=== PATIENT | female | born 1990 | race Caucasian/White ===

== ENCOUNTER 2019-09-21 18:41 | Inpatient (IN) | payer BC ==
--- OUTSIDE RECORDS SUMMARY | ~2019-09-21 | XMS | Encounter Summary ---
Demographics + + + | Address | [address] | | | [place] [address] | + + + | Home Phone | | + + + | Preferred Language | Unknown | + + + | Marital Status | | + + + | Hoahaoism Affiliation | 1013 | + + + | Race | Unknown | + + + | Ethnic Group | Unknown | + + + Author + + + | Author | [facility] | | | and [place] | + + + | Organization | [facility] | | | and [place] | + + + | Address | Unknown | + + + | Phone | Unavailable | + + + Care Team Providers + +------+ + | Care Water Plumber Name | Role | Phone | + +------+ + PCP | Unavailable | + +------+ + Encounter Details +--------+ + + + + | Date | Type | Department | Care Team | Description | +--------+ + + + + | 02/26/ | Orders Only | [facility] | Conversion | | | 2011 | | CONVERSION | Transaction, | | | | | INTERFACES [address] | Provider Unknown | | | | | [address] [place], [place] | | | | | | [address] | (Fax) | | | | | [phone] | | | +--------+ + + + + Social History + +-------+ +--------+------+ | Tobacco Use | Types | Packs/Day | Years | Date | | | | | Used | | + +-------+ +--------+------+ | Never Assessed | | | | | + +-------+ +--------+------+ + + + | Sex Assigned at | Date Recorded | | | | + + + | Not on file | | + + + documented as of this encounter Plan of Treatment Not on filedocumented as of this encounter Procedures + +--------+ + + + | Procedure Name | Priori | Date/Time | Associated Diagnosis | Comments | | | ty | | | | + +--------+ + + + | FL C ARM < 1 HOUR | Routin | 02/26/2011 | | Results for this | | | e | 3:58 AM | | procedure are in the | | | | PST | | results section. | + +--------+ + + + documented in this encounter Results FL C-Arm < 1 Hour (02/26/2011 3:58 AM PST) + + | Specimen | + + | | + + + + + | Narrative | Performed At | + + + | This is a non-reportable procedure without a radiologist report and | | | is used for image storage only | | + + + + + | Procedure Note | + + | Sawyer Cruz - 10/15/2018 9:33 AM PDT This is a non-reportable procedure | | without a radiologist report and isused for image storage only | + + documented in this encounter Visit Diagnoses Not on filedocumented in this encounter"
--- OUTSIDE RECORDS SUMMARY | ~2019-09-21 | XMS | Encounter Summary ---
Demographics + + + | Address | [address] | | | [place] [address] | + + + | Home Phone | | + + + | Preferred Language | Unknown | + + + | Marital Status | | + + + | Yazidism Affiliation | 1013 | + + + | Race | Unknown | + + + | Ethnic Group | Unknown | + + + Author + + + | Author | [facility] | | | and [place] | + + + | Organization | [facility] | | | and [place] | + + + | Address | Unknown | + + + | Phone | Unavailable | + + + Care Team Providers + +------+ + | Care Insurance Underwriter Name | Role | Phone | + +------+ + PCP | Unavailable | + +------+ + Encounter Details +--------+ + + + + | Date | Type | Department | Care Team | Description | +--------+ + + + + | 10/29/ | Orders Only | [facility] | Neena Jansen, | | | 2010 | | CONVERSION | MD [address] | | | | | [address]FAC[address] | [place] | | | | | [address] [place], [place] | [address] | | | | | [address] | | | | | | [phone] | | | +--------+ + + + [...] | + +--------+ + + + | CT RENAL STONE WO | Routin | 10/29/2010 | | Results for this | | CONTRAST | e | 10:05 PM | | procedure are in the | | | | PDT | | results section. | + +--------+ + + + documented in this encounter Results CT Renal Stone Wo Contrast (10/29/2010 10:05 PM PDT) + + | Specimen | + + | | + + + + + | Narrative | Performed At | + + + | [facility] [address] Ph: | | | Patient Name: EZIO SIDDIQI Date of : | | | 1990 Medical Record: [id number] Account: [id number] | | | Exam Date/Time: 10/29/2010 21:37 Ordering | | | Physician: NEENA JANSEN Order Detail: [id number] Exam Description: | | | CT URINARY TRACT (ABDOMEN/PELVIS) | | | CT | | | ABDOMEN WITHOUT CONTRAST AND CT PELVIS WITHOUT CONTRAST 10/29/2010 | | | HISTORY: Right low abdomen pain. TECHNIQUE: Scans obtained | | | through the abdomen and pelvis without IV or oral contrast with | | | coronal reformations. FINDINGS: The lung bases are unremarkable. | | | In the abdomen, the unenhanced liver, pancreas, spleen, adrenals, | | | and kidneys are unremarkable. No ureteral stones or obstruction on | | | either side. No calcified gallstones or dilated ducts. No aortic | | | enlargement. No adenopathy. Bowel is unremarkable in the abdomen | | | and pelvis, noting a normal appendix. No free air in the abdomen and | | | pelvis. In the pelvis, there is a small amount of free fluid. | | | Reproductive organs and full bladder are unremarkable. | | | IMPRESSION: Small amount of free fluid noted in the pelvis. Otherwise | | | unremarkable noncontrast CT of the abdomen and pelvis. Read by | | | Mo Galdamez MD on 10/29/10 22:28. | | + + + + + | Procedure Note | + + | Anthony, Rad Conversion - 10/16/2018 10:30 AM PDT | | [facility] | | [facility] [place] [address] | | | | | | Patient Name: EZIO SIDDIQI | | Date of : 1990 | | Medical Record: [id number] | | Account: [id number] | | | | | | Exam Date/Time: 10/29/2010 21:37 | | Ordering Physician: NEENA JANSEN | | Order Detail: [id number] | | Exam Description: CT URINARY TRACT (ABDOMEN/PELVIS) | | | | CT ABDOMEN WITHOUT CONTRAST AND CT PELVIS WITHOUT CONTRAST 10/29/2010 | | | | HISTORY: Right low abdomen pain. | | | | TECHNIQUE: Scans obtained through the abdomen and pelvis without IV or | | oral contrast with coronal reformations. | | | | FINDINGS: The lung bases are unremarkable. | | | | In the abdomen, the unenhanced liver, pancreas, spleen, adrenals, and | | kidneys are unremarkable. No ureteral stones or obstruction on either side. | | No calcified gallstones or dilated ducts. No aortic enlargement. No | | adenopathy. | | | | Bowel is unremarkable in the abdomen and pelvis, noting a normal appendix. | | No free air in the abdomen and pelvis. | | | | In the pelvis, there is a small amount of free fluid. Reproductive organs | | and full bladder are unremarkable. | | | | IMPRESSION: Small amount of free fluid noted in the pelvis. Otherwise | | unremarkable noncontrast CT of the abdomen and pelvis. | | | | Read by Mo Galdamez MD on 10/29/10 22:28. | | | | | | | | | + + documented in this encounter Visit Diagnoses Not on filedocumented in this encounter"
--- OUTSIDE RECORDS SUMMARY | ~2019-09-21 | XMS | Encounter Summary ---
Demographics + + + | Address | [address] | | | [place] [address] | + + + | Home Phone | | + + + | Preferred Language | Unknown | + + + | Marital Status | | + + + | Restorationism Affiliation | 1013 | + + + | Race | Unknown | + + + | Ethnic Group | Unknown | + + + Author + + + | Author | [facility] | | | and [place] | + + + | Organization | [facility] | | | and [place] | + + + | Address | Unknown | + + + | Phone | Unavailable | + + + Care Team Providers + +------+ + | Care Medical Delivery Driver Name | Role | Phone | + +------+ + PCP | Unavailable | + +------+ + Encounter Details +--------+ + + + + | Date | Type | Department | Care Team | Description | +--------+ + + + + | 10/29/ | Orders Only | [facility] | Adeel Jansen S, | | | 2010 | | CONVERSION [address]P [address] | MD [address] | | | | | [address] | [place], [place] | | | | | [place], [place] | [address] | | | | | [address] | | | | | | [phone] | | | +--------+ + + + [...] | + +--------+ + + + | CULTURE, URINE | STAT | 10/29/2010 | | Results for this | | | | 10:26 PM | | procedure are in the | | | | PDT | | results section. | + +--------+ + + + documented in this encounter Results Culture, Urine (10/29/2010 10:26 PM PDT) + + | Specimen | + + | | + + + + + | Narrative | Performed At | + + + | Specimen Description CLEAN CATCH URINE CULTURE | EXTERNAL LAB | | 10,000 TO 50,000 CFU/ML | | | MIXED GRAM POSITIVE LADARIUS | | | NO SUSCEPTIBILITY TO FOLLOW | | | MULTIPLE ORGANISM TYPES PRESENT, SUGGESTIVE OF | | | CONTAMINATION OR COLONIZATION. SUGGEST RECOLLECTION FOR CULTURE. | | | Testing performed at | | | L, [address] [place] [address] REPORT STATUS | | | 10/31/2010 FINAL | | + + + + +---------+ + + | Performing | Address | City/State/Zipcode | Phone Number | | Organization | | | | + +---------+ + + | EXTERNAL LAB | | | | + +---------+ + + documented in this encounter Visit Diagnoses Not on filedocumented in this encounter"
--- OUTSIDE RECORDS SUMMARY | ~2019-09-21 | XMS | Clinical Summary ---
Demographics + + + | Address | [address] | | | [place] [address] | + + + | Home Phone | | + + + | Preferred Language | Unknown | + + + | Marital Status | | + + + | Gnosticism Affiliation | 1013 | + + + | Race | Unknown | + + + | Ethnic Group | Unknown | + + + Author + + + | Author | [facility] | | | and [place] | + + + | Organization | [facility] | | | and [place] | + + + | Address | Unknown | + + + | Phone | Unavailable | + + + Care Team Providers + +------+ + | Care Commodities Broker Name | Role | Phone | + +------+ + PCP | Unavailable | + +------+ + Allergies Not on File Medications Not on file Active Problems Not on file Immunizations + + + + | Name | Administration Dates | Next Due | + + + + | TDAP, (ADOL/ADULT) | 05/03/2014 | | + + + + Family History + + +------+ + | Medical History | Relation | Name | Comments | + + +------+ + | Asthma | Sister | | | + + +------+ + + +------+--------+ + | Relation | Name | Status | Comments | + +------+--------+ + | Father | | Alive | | + +------+--------+ + | Mother | | Alive | | + +------+--------+ + | Sister | | | | + +------+--------+ + Social History + +-------+ +--------+------+ | Tobacco Use | Types | Packs/Day | Years | Date | | | | | Used | | + +-------+ +--------+------+ | Never Smoker | | | | | + +-------+ +--------+------+ + + + | Sex Assigned at | Date Recorded | | | | + + + | Not on file | | + + + Last Filed Vital Signs + + + + + | Vital Sign | Reading | Time Taken | Comments | + + + + + | Blood Pressure | 90/62 | 11/07/2015 10:30 AM | | | | | PDT | | + + + + + | Pulse | 78 | 11/07/2015 10:30 AM | | | | | PDT | | + + + + + | Temperature | 36.4 C (97.5 F) | 10/24/2015 1:12 PM | | | | | PDT | | + + + + + | Respiratory Rate | 16 | 10/24/2015 1:12 PM | | | | | PDT | | + + + + + | Oxygen Saturation | - | - | | + + + + + | Inhaled Oxygen | - | - | | | Concentration | | | | + + + + + | Weight | 51.7 kg (114 lb) | 11/07/2015 10:30 AM | | | | | PDT | | + + + + + | Height | 160 cm (5' 3") | 11/07/2015 10:30 AM | | | | | PDT | | + + + + + | Body Mass Index | 20.19 | 11/07/2015 10:30 AM | | | | | PDT | | + + + + + Plan of Treatment + + + + + | Health Maintenance | Due Date | Last | Comments | | | | Done | | + + + + + | Cervical Cancer | | | | | Screening (Pap) | 2 | | | + + + + + | Vaccine: Influenza | | | | | (#1) | 0 | | | + + + + + | Vaccine: | | 05/04/19 | | | Dtap/Tdap/Td (2 - | 5 | 15 | | | Td) | | | | + + + + + Results Not on filefrom Last 3 Months
--- OUTSIDE RECORDS SUMMARY | ~2019-09-21 | XMS | Encounter Summary ---
Demographics + + + | Address | [address] | | | [place] [address] | + + + | Home Phone | | + + + | Preferred Language | Unknown | + + + | Marital Status | | + + + | Yazdanism Affiliation | 1013 | + + + | Race | Unknown | + + + | Ethnic Group | Unknown | + + + Author + + + | Author | [facility] | | | and [place] | + + + | Organization | [facility] | | | and [place] | + + + | Address | Unknown | + + + | Phone | Unavailable | + + + Care Team Providers + +------+ + | Care Customer Service Sales Associate Name | Role | Phone | + +------+ + PCP | Unavailable | + +------+ + Encounter Details +--------+ + + + + | Date | Type | Department | Care Team | Description | +--------+ + + + + | 10/23/ | Orders Only | [facility] | Radha Bob | | | 2016 | | [address] | [place] [address] | | | | | [place], [place] | [place] | | | | | [address] | [place] [address] | | | | | [phone] | [phone] | | | | | | | | +--------+ + + + [...] | + +--------+ + + + | EXTERNAL LAB: CBC | Routin | 10/24/2015 | | Results for this | | | e | 2:05 PM | | procedure are in the | | | | PDT | | results section. | + +--------+ + + + | COMPREHENSIVE | Routin | 10/24/2015 | | Results for this | | METABOLIC PANEL | e | 2:05 PM | | procedure are in the | | | | PDT | | results section. | + +--------+ + + + documented in this encounter Results External Lab: CBC (10/24/2015 2:05 PM PDT) + + + + + + | Component | Value | Ref Range | Performed | Pathologist | | | | | At | Signature | + + + + + + | WBC | 7.01 | 3.80 - 11.00 | EXTERNAL | | | | | 10*3/uL | LAB | | + + + + + + | Non- | 5.03 | 3.70 - 5.10 | EXTERNAL | | | Red Blood | | 10*6/uL | LAB | | | Cells | | | | | | Counted | | | | | + + + + + + | Hemoglobin | 14.3 | 11.3 - 15.5 | EXTERNAL | | | | | g/dL | LAB | | + + + + + + | Hematocrit, | 41.8 | 34.0 - 46.0 % | EXTERNAL | | | POC | | | LAB | | + + + + + + | MCV | 83.2 | 80.0 - 100.0 fL | EXTERNAL | | | | | | LAB | | + + + + + + | MCH | 28.5 | 27.0 - 34.0 pg | EXTERNAL | | | | | | LAB | | + + + + + + | MCHC | 34.2 | 32.0 - 35.5 | EXTERNAL | | | | | g/dL | LAB | | + + + + + + | RDW-CV | 37.2 | 37 - 53 fL | EXTERNAL | | | | | | LAB | | + + + + + + | Platelet | 230 | 150 - 400 | EXTERNAL | | | Count | | 10*3/uL | LAB | | | Plasma | | | | | + + + + + + | MPV | 8.1 | fL | EXTERNAL | | | | | | LAB | | + + + + + + | Differentia | AUTOMATED | | EXTERNAL | | | l Type | | | LAB | | + + + + + + | % Segmented | 62.18 | % | EXTERNAL | | | | | | LAB | | | Neutrophils | | | | | + + + + + + | % | 22.45 | % | EXTERNAL | | | Lymphocytes | | | LAB | | + + + + + + | % Monocytes | 10.83 | % | EXTERNAL | | | | | | LAB | | + + + + + + | % | 3.46 | % | EXTERNAL | | | Eosinophils | | | LAB | | + + + + + + | % Basophils | 1.08 | % | EXTERNAL | | | | | | LAB | | + + + + + + | Absolute | 4.36 | 1.90 - 7.40 | EXTERNAL | | | Segmented | | 10*3/uL | LAB | | | Neutrophils | | | | | + + + + + + | Absolute | 1.57 | 1.00 - 3.90 | EXTERNAL | | | Lymphocytes | | 10*3/uL | LAB | | + + + + + + | Absolute | 0.76 | 0.00 - 0.80 | EXTERNAL | | | Monocytes | | 10*3/uL | LAB | | + + + + + + | Absolute | 0.24 | 0.00 - 0.50 | EXTERNAL | | | Eosinophils | | 10*3/uL | LAB | | + + + + + + | Absolute | 0.08 | 0.00 - 0.10 | EXTERNAL | | | Basophils | | 10*3/uL | LAB | | + + + + + + + + | Specimen | + + | Blood specimen | | (specimen) | + + + +---------+ + + | Performing | Address | City/State/Zipcode | Phone Number | | Organization | | | | + +---------+ + + | EXTERNAL LAB | | | | + +---------+ + + Comprehensive Metabolic Panel (10/24/2015 2:05 PM PDT) + + + + + + | Component | Value | Ref Range | Performed | Pathologist | | | | | At | Signature | + + + + + + | Na | 139 | 135 - 145 | EXTERNAL | | | | | mmol/L | LAB | | + + + + + + | K | 4.6 | 3.5 - 4.9 | EXTERNAL | | | | | mmol/L | LAB | | + + + + + + | Cl | 104 | 99 - 109 mmol/L | EXTERNAL | | | | | | LAB | | + + + + + + | CO2 | 27 | 23 - 32 mmol/L | EXTERNAL | | | | | | LAB | | + + + + + + | Anion Gap | 13 | 5 - 20 mmol/L | EXTERNAL | | | | | | LAB | | + + + + + + | Glucose, | 93 | 65 - 99 mg/dL | EXTERNAL | | | Fasting | | | LAB | | + + + + + + | BUN | 17 | 8 - 25 mg/dL | EXTERNAL | | | | | | LAB | | + + + + + + | Creatinine | 0.7 | 0.50 - 1.00 | EXTERNAL | | | | | mg/dL | LAB | | + + + + + + | BUN/Creatin | 24 | | EXTERNAL | | | ine Ratio | | | LAB | | + + + + + + | Calcium | 9.5 | 8.5 - 10.5 | EXTERNAL | | | | | mg/dL | LAB | | + + + + + + | Protein, | 7.3 | 6.3 - 8.2 g/dL | EXTERNAL | | | Total | | | LAB | | + + + + + + | Albumin | 4.3 | 3.6 - 5.0 g/dL | EXTERNAL | | | | | | LAB | | + + + + + + | Globulin | 3.0 | 1.3 - 4.9 g/dL | EXTERNAL | | | | | | LAB | | + + + + + + | A/G Ratio | 1.4 | 1.0 - 2.4 | EXTERNAL | | | | | | LAB | | + + + + + + | Bilirubin | 0.4 | 0.1 - 1.5 mg/dL | EXTERNAL | | | Total | | | LAB | | + + + + + + | ALP, | 36 | 35 - 115 U/L | EXTERNAL | | | External | | | LAB | | + + + + + + | AST | 11 | 10 - 45 U/L | EXTERNAL | | | | | | LAB | | + + + + + + | ALT | 21 | 10 - 65 U/L | EXTERNAL | | | | | | LAB | | + + + + + + | Estimated | >60Comment: GFR <60: | mL/min/{1.73_m2 | EXTERNAL | | | GFR | CHRONIC KIDNEY DISEASE, | } | LAB | | | | IF FOUND OVER A 3 MONTH | | | | | | PERIOD. GFR <15: KIDNEY | | | | | | FAILURE. FOR | | | | | | AMERICANS, MULTIPLY THE | | | | | | CALCULATED GFR BY 1.210. | | | | + + + + + + + + | Specimen | + + | Blood specimen | | (specimen) | + + + +---------+ + + | Performing | Address | City/State/Zipcode | Phone Number | | Organization | | | | + +---------+ + + | EXTERNAL LAB | | | | + +---------+ + + documented in this encounter Visit Diagnoses Not on filedocumented in this encounter"
--- OUTSIDE RECORDS SUMMARY | ~2019-09-21 | XMS | Encounter Summary ---
Demographics + + + | Address | [address] | | | [place] [address] | + + + | Home Phone | | + + + | Preferred Language | Unknown | + + + | Marital Status | | + + + | Lutheran Affiliation | 1013 | + + + | Race | Unknown | + + + | Ethnic Group | Unknown | + + + Author + + + | Author | [facility] | | | and [place] | + + + | Organization | [facility] | | | and [place] | + + + | Address | Unknown | + + + | Phone | Unavailable | + + + Care Team Providers + +------+ + | Care Product Promoter Sales Person Name | Role | Phone | + +------+ + PCP | Unavailable | + +------+ + Encounter Details +--------+ + + + + | Date | Type | Department | Care Team | Description | +--------+ + + + + | 10/28/ | Orders Only | [facility] | Destini Oconnor, | | | 2010 | | CONVERSION | [address] | | | | | [address] | [place] | | | | | [address] [place], [place] | [address] | | | | | [address] | [phone] | | | | | [phone] | | | +--------+ + + + [...] | + +--------+ + + + | US PELVIS | Routin | 10/28/2010 | | Results for this | | TRANSABDOMINAL | e | 11:46 PM | | procedure are in the | | | | PDT | | results section. | + +--------+ + + + documented in this encounter Results US Pelvis Transabdominal (10/28/2010 11:46 PM PDT) + + | Specimen | + + | | + + + + + | Narrative | Performed At | + + + | [facility] [address] Ph: | | | Patient Name: EZIO SIDDIQI Date of : | | | 1990 Medical Record: [id number] Account: [id number] | | | Exam Date/Time: 10/28/2010 22:15 Ordering | | | Physician: DESTINI OCONNOR Order Detail: [id number] Exam Description: | | | US PELVIS | | | | | | ULTRASOUND PELVIS WITH TRANSABDOMINAL 10/28/2010 HISTORY: Pelvic | | | pain. TECHNIQUE: Transabdominal pelvic ultrasound performed for | | | global evaluation. The patient refused transvaginal exam. | | | FINDINGS: The uterus measures 6.5 x 3.1 x 3.9 cm with volume of 41 mL. | | | The uterus appears within normal limits. Endometrial stripe measures | | | 4 mm. The right ovary measures 3.8 x 4.3 x 2.0 cm with a volume | | | of 17.1 mL. Left ovary measures 3.4 x 3.6 x 2.4 cm with a volume of | | | 15.4 mL. Low resistance arterial waveforms are demonstrated in both | | | ovaries. Ovaries appear within normal limits. No free fluid. | | | IMPRESSION: Uterus and ovaries appear within normal limits on this | | | transabdominal pelvic exam. No acute findings are seen. Read by | | | Angela Marion MD on 10/29/2010 00:11 | | + + + + + | Procedure Note | + + | Sawyer Cruz Conversion - 10/16/2018 10:30 AM PDT | | [facility] | | [facility] [address] | | | | | | Patient Name: EZIO SIDDIQI | | Date of : 1990 | | Medical Record: [id number] | | Account: [id number] | | | | | | Exam Date/Time: 10/28/2010 22:15 | | Ordering Physician: DESTINI OCONNOR | | Order Detail: [id number] | | Exam Description: US PELVIS | | | | ULTRASOUND PELVIS WITH TRANSABDOMINAL 10/28/2010 | | | | HISTORY: Pelvic pain. | | | | TECHNIQUE: Transabdominal pelvic ultrasound performed for global | | evaluation. The patient refused transvaginal exam. | | | | FINDINGS: The uterus measures 6.5 x 3.1 x 3.9 cm with volume of 41 mL. The | | uterus appears within normal limits. Endometrial stripe measures 4 mm. | | | | The right ovary measures 3.8 x 4.3 x 2.0 cm with a volume of 17.1 mL. Left | | ovary measures 3.4 x 3.6 x 2.4 cm with a volume of 15.4 mL. Low resistance | | arterial waveforms are demonstrated in both ovaries. Ovaries appear within | | normal limits. | | | | No free fluid. | | | | IMPRESSION: Uterus and ovaries appear within normal limits on this | | transabdominal pelvic exam. No acute findings are seen. | | | | Read by Angela Marion MD on 10/29/2010 00:11 | | | | | | | + + documented in this encounter Visit Diagnoses Not on filedocumented in this encounter"
--- OUTSIDE RECORDS SUMMARY | ~2019-09-21 | XMS | Encounter Summary ---
Demographics + + + | Address | [address] | | | [place] [address] | + + + | Home Phone | | + + + | Preferred Language | Unknown | + + + | Marital Status | | + + + | Buddhism Affiliation | 1013 | + + + | Race | Unknown | + + + | Ethnic Group | Unknown | + + + Author + + + | Author | [facility] | | | and [place] | + + + | Organization | [facility] | | | and [place] | + + + | Address | Unknown | + + + | Phone | Unavailable | + + + Care Team Providers + +------+ + | Care Farm Field Manager Name | Role | Phone | + +------+ + PCP | Unavailable | + +------+ + Encounter Details +--------+ + + + + | Date | Type | Department | Care Team | Description | +--------+ + + + + | 01/27/ | Orders Only | [facility] | Isael Merlos | | | 2010 | | CONVERSION | MD Curt Palma | | | | | [place] | [facility]ST[facility]I CLAY | | | | | [address], [place] | [place], [place] | | | | | [address] | [address] | | | | | [phone] | | | +--------+ + + + [...] + +--------+ + + + | CT LUMBAR SPINE WO | Routin | 01/27/2011 | | Results for this | | CONTRAST | e | 10:42 AM | | procedure are in the | | | | PST | | results section. | + +--------+ + + + documented in this encounter Results CT Lumbar Spine wo Contrast (01/27/2011 10:42 AM PST) + + | Specimen | + + | | + + + + + | Narrative | Performed At | + + + | HISTORY: 20 year-old female with pain, right lower extremity | | | radiculopathy TECHNIQUE: CT of the lumbar spine without contrast, | | | high resolution bone algorithm technique with reformatted coronal, | | | lumbosacral and sagittal images. Prior study for comparison none | | | similar but a prior MRI from 07 January was reviewed as thought | | | helpful FINDINGS: [facility] is only notable for a cosmetic ring | | | about the umbilicus and [id number]-[id number] endplate changes. Lumbar | | | spine is normal in alignment without evidence of measurable | | | anterolisthesis on the supine exam. Bones are normal in mineralization | | | and density. Specifically, there is no fracture or aggressive | | | lesion. Paraspinal soft tissues. Paraspinal soft tissues, to | | | limitations of collimation and technique are unremarkable. There | | | is some nitrogen formation about the inferior margin of both SI | | | joints but no erosive change, widening or lysis. About the lumbosacral | | | junction, the facets are normal. Specifically there is no evidence | | | of pars defect and no marginal productive changes. Disc spaces | | | themselves are preserved. L2-L3: Normal level L3-L4: Normal | | | level L4-L5: Normal level L5-S1: Normal level At most, | | | there are slight bulges of the disks such as that L5-S1 bulge of | | | about demonstrated. Smaller bulges at L1-L2 and L2-L3 are appreciated | | | which are even smaller. Seen slightly more prominent than on the | | | patient's prior MRI -- although that modality is generally better for | | | soft tissue disease. The fat about all exiting nerves appears | | | preserved and therefore the disc bulges are likely incidental rather | | | than explanatory to symptoms IMPRESSION: 1. Some slight | | | bulging of the disc at L5-S1 but thought more likely incidental | | | rather than explanatory to symptoms. No evident or demonstrated | | | neurogenic impact 2. Specifically no evidence of fracture, facet | | | arthropathy, skeletal lesion or pars defect to correlate with the | | | patient's symptoms. See above report for full details, incidental | | | findings and other levels. | | + + + + + | Procedure Note | + + | Anthony, Rad Conversion - 10/16/2018 10:30 AM PDT HISTORY: 20 year-old female with pain, | | right lower extremity radiculopathy TECHNIQUE: CT of the lumbar spine without contrast, | | high resolution bonealgorithm technique with reformatted coronal, lumbosacral and | | sagittalimages. Prior study for comparison none similar but a prior MRI from [address] [place] [address] | | was reviewed as thought helpful FINDINGS: [facility] is only notable for a cosmetic ring | | about the umbilicus [id number] endplate changes. Lumbar spine is normal in | | alignment without evidence of measurableanterolisthesis on the supine exam. Bones are | | normal in mineralization anddensity. Specifically, there is no fracture or aggressive | | lesion.Paraspinal soft tissues. Paraspinal soft tissues, to limitations of collimation | | and technique areunremarkable. There is some nitrogen formation about the inferior | | margin of both SIjoints but no erosive change, widening or lysis. About the | | lumbosacraljunction, the facets are normal. Specifically there is no evidence of | | parsdefect and no marginal productive changes. Disc spaces themselves arepreserved. | | L2-L3: Normal level L3-L4: Normal level L4-L5: Normal level L5-S1: Normal level At most, | | there are slight bulges of the disks such as that L5-S1 bulge ofabout demonstrated. | | Smaller bulges at L1-L2 and L2-L3 are appreciated whichare even smaller. Seen slightly | | more prominent than on the patient's priorMRI -- although that modality is generally | | better for soft tissue disease.The fat about all exiting nerves appears preserved and | | therefore the discbulges are likely incidental rather than explanatory to symptoms | | IMPRESSION: 1. Some slight bulging of the disc at L5-S1 but thought more | | likelyincidental rather than explanatory to symptoms. No evident or | | demonstratedneurogenic impact 2. Specifically no evidence of fracture, facet | | arthropathy, skeletal lesionor pars defect to correlate with the patient's symptoms. See | | above report for full details, incidental findings and other levels. Electronically | | signed by Isaias Mendiola MD on 01/27/2011 1:58 PM | | | |L2-L3: Normal level | | | |L3-L4: Normal level | | | |L4-L5: Normal level | | | |L5-S1: Normal level | | | |At most, there are slight bulges of the disks such as that L5-S1 bulge of | |about demonstrated. Smaller bulges at L1-L2 and L2-L3 are appreciated which | |are even smaller. Seen slightly more prominent than on the patient's prior | |MRI -- although that modality is generally better for soft tissue disease. | |The fat about all exiting nerves appears preserved and therefore the disc | |bulges are likely incidental rather than explanatory to symptoms | | | |IMPRESSION: | | | |1. Some slight bulging of the disc at L5-S1 but thought more likely | |incidental rather than explanatory to symptoms. No evident or demonstrated | |neurogenic impact | | | |2. Specifically no evidence of fracture, facet arthropathy, skeletal lesion | |or pars defect to correlate with the patient's symptoms. | | | |See above report for full details, incidental findings and other levels. | | | | | + + documented in this encounter Visit Diagnoses Not on filedocumented in this encounter"
--- NOTE | 2019-09-22 07:33 | PR ---
[facility] [address] [place], [place] [address] Signed PP Progress Notes Datetime Report Generated by CPN: 09/22/2019 07:32 SUBJECTIVE: [id number] Pain: Within Normal Limits Nausea/Vomiting: Denies Flatus: Yes Bowel Movement: No Vital Signs: [id number] Vital Signs: Reviewed; Within Normal Limits Cardiovascular: Normal Respiratory: Normal Abdomen/Uterus: Normal Lochia: Normal Vulva/Perineum: Not Done CVA Tenderness: Normal Extremities: Normal Incision: Not Applicable Exam Comments: Fundus firm U-2 IMPRESSION/PLAN/PROCEDURES: [id number] Impression: Normal Progression Plan: Discharge Progress Notes: Pt seen and examined. Doing well. w/out difficulty. Desires d/c home [facility]. Declines all vaccinations or pp contraception. F/U 2 wks Signing Physician: Binu Sosa DO Copies: ~ *Electronically Signed* 09/22/1932 BINU SOSA DO PATIENT NAME: EZIO BECKER PROGRESS NOTE DATE OF : 89 PHYSICIAN: BINU SOSA DO RPT #: [id number] REPORT IS CONFIDENTIAL AND NOT TO BE RELEASED WITHOUT AUTHORIZATION
== END 2019-09-22 11:10 | disposition home or self-care (01) | DRG 807 ==
LOC: FBCO 18:41 → FBC 18:55
PROVIDERS: ADMIT Obstetrics & Gynecology; ATTEND Obstetrics & Gynecology
PROC: 10E0XZZ Delivery of Products of Conception, External Approach (ICD-10-PCS; principal; 2019-09-21)
PROC: 0HQ9XZZ Repair Perineum Skin, External Approach (ICD-10-PCS; 2019-09-21)
PROC: 10907ZC Drainage of Amniotic Fluid, Therapeutic from Products of Conception, Via Natural or Artificial Opening (ICD-10-PCS; 2019-09-21)
DX: O69.81X0 Labor and delivery complicated by cord around neck, without compression, not applicable or unspecified (principal); Z37.0 Single live birth; O70.0 First degree perineal laceration during delivery; Z3A.39 39 weeks gestation of pregnancy
CPT/HCPCS: 36415; 85027; A9270; J2590